=== PATIENT | male | born 1985 | race Caucasian/White ===

== ENCOUNTER → 2017-04-21 | Outpatient (CLI) | payer BC | LOC: RAD 09:44 | DX: R10.9 Unspecified abdominal pain (principal); R93.2 Abnormal findings on diagnostic imaging of liver and biliary tract ==

== ENCOUNTER → 2021-10-19 | Outpatient (CLI) | payer BC ==
[2021-10-19 13:18] LABS: BASO # 0.02 K/mm3 (0.02-0.10); EOS # 0.07 K/mm3 (0.04-0.40); EOS % 0.7 % (0.0-4.0); HEMATOCRIT 48.5 % (42.0-52.0); HEMOGLOBIN 16.1 g/dL (13.5-18.0); LYMPH# 2.45 K/mm3 (1.50-4.00); MEAN CELL VOLUME 85 fl (78-100); MEAN CORPUSCULAR HEMOGLOBIN 28 pg (27-31); MEAN CORPUSCULAR HGB CONC 33 g/dL (33-37); MEAN PLATELET VOLUME 9.6 fl (7.4-10.4); MONO # 0.59 K/mm3 (0.20-0.80); NEU # 7.13 K/mm3 (1.40-6.50); PLATELET COUNT 303 K/mm3 (130-400); RED BLOOD COUNT 5.68 M/mm3 (4.20-5.60); RED CELL DISTRIBUTION WIDTH 13.4 % (11.5-14.5); WHITE BLOOD COUNT 10.3 K/mm3 (4.8-10.8)
[2021-10-19 13:25] LABS: ALBUMIN 4.3 g/dL (3.5-5.0); POTASSIUM 4.4 mmol/L (3.5-5.1)
[2021-10-19 13:26] LABS: CALCIUM 9.7 mg/dL (8.3-10.5)
[2021-10-19 13:28] LABS: TOTAL PROTEIN 8.5 g/dL (6.4-8.3)
[2021-10-19 13:29] LABS: TOTAL BILIRUBIN 1.1 mg/dL (0.2-1.2)
[2021-10-20 07:27] LABS: ALTERNARIA TENUIS CNT 2.09 kU/L (()); ASPERGILLUS FUMIGATUS AL COUNT 0.83 kU/L (()); BEEF (COW) ALLERGEN COUNT <0.10 kU/L (()); BERMUDA GRASS ALLERGEN COUNT <0.10 kU/L (()); BOX ELDER-MAPLE ALLERGEN COUNT <0.10 kU/L (()); CAT DANDER ALLERGEN COUNT <0.10 kU/L (()); CHOCOLATE ALLERGEN COUNT <0.10 kU/L (()); CLADOSPORIUM ALLERGEN COUNT 2.17 kU/L (()); COCKROACH ALLERGEN COUNT <0.10 kU/L (()); CORN ALLERGEN COUN <0.10 kU/L (()); COTTONWOOD TREE ALLERGEN COUNT <0.10 kU/L (()); DOG DANDER ALLERGEN COUNT <0.10 kU/L (()); DUST MITES (D.F.) ALLERG COUNT 0.12 kU/L (()); DUST MITES (D.P.) ALLERG COUNT 0.15 kU/L (()); EGG WHITE ALLERGEN COUNT <0.10 kU/L (()); ELM TREE ALLERGEN COUNT <0.10 kU/L (()); FIREBUSH ALLERGEN COUNT <0.10 kU/L (()); FISH-SHELLFISH MIX ALLGN COUNT <0.10 kU/L (()); MILK ALLERGEN COUNT <0.10 kU/L (()); OAK ALLERGEN COUNT <0.10 kU/L (()); PORK ALLERGEN COUNT <0.10 kU/L (()); ROUGH MARSH ELDER ALLERG COUNT 0.14 kU/L (()); RUSSIAN THISTLE ALLERGEN COUNT 0.15 kU/L (()); SHORT RAGWEED ALLERGEN COUNT 0.21 kU/L (()); WHEAT ALLERGEN COUNT 0.14 kU/L (())
== END ==
LOC: LAB 12:46
PROVIDERS: Family Medicine
DX: Z00.00 Encounter for general adult medical examination without abnormal findings (principal); E78.5 Hyperlipidemia, unspecified; F41.1 Generalized anxiety disorder; G47.33 Obstructive sleep apnea (adult) (pediatric); M54.50 Low back pain, unspecified; J30.2 Other seasonal allergic rhinitis; E66.01 Morbid (severe) obesity due to excess calories

== ENCOUNTER → 2021-10-24 | Outpatient (CLI) | payer BC | LOC: RAD 11:16 | DX: K76.0 Fatty (change of) liver, not elsewhere classified (principal); Z90.49 Acquired absence of other specified parts of digestive tract ==

== ENCOUNTER → 2022-07-17 | Outpatient (CLI) | payer BC ==
[2022-07-17 17:19] LABS: BASO # 0.02 K/mm3 (0.02-0.10); EOS # 0.17 K/mm3 (0.04-0.40); EOS % 1.7 % (0.0-4.0); HEMATOCRIT 50.2 % (42.0-52.0); HEMOGLOBIN 16.8 g/dL (13.5-18.0); LYMPH# 3.63 K/mm3 (1.50-4.00); MEAN CELL VOLUME 87 fl (78-100); MEAN CORPUSCULAR HEMOGLOBIN 29 pg (27-31); MEAN CORPUSCULAR HGB CONC 34 g/dL (33-37); MEAN PLATELET VOLUME 9.6 fl (7.4-10.4); MONO # 0.64 K/mm3 (0.20-0.80); NEU # 5.33 K/mm3 (1.40-6.50); PLATELET COUNT 328 K/mm3 (130-400); RED BLOOD COUNT 5.79 M/mm3 (4.20-5.60); WHITE BLOOD COUNT 9.8 K/mm3 (4.8-10.8)
[2022-07-17 17:38] LABS: ALBUMIN 4.4 g/dL (3.5-5.0); POTASSIUM 3.8 mmol/L (3.5-5.1)
[2022-07-17 17:39] LABS: CALCIUM 9.6 mg/dL (8.3-10.5)
[2022-07-17 17:40] LABS: TOTAL PROTEIN 8.4 g/dL (6.4-8.3)
[2022-07-17 17:42] LABS: TOTAL BILIRUBIN 0.8 mg/dL (0.2-1.2)
== END ==
LOC: LAB 16:51
PROVIDERS: Family Medicine
DX: F41.1 Generalized anxiety disorder (principal); J30.2 Other seasonal allergic rhinitis; G47.09 Other insomnia; R53.83 Other fatigue